=== PATIENT | male | born 1995 | race Caucasian/White ===

== ENCOUNTER 2024-03-08 09:04 | Emergency (ER) | payer OTHER ==
[2024-03-08] MEDS: Lidocaine 1% 5 ML VIAL INJECT ONE (09:54)
[2024-03-08] MEDS: Bupivacaine 0.5% 10 ML SDV INJECT ONE (09:54)
[2024-03-08] MEDS: Diphtheria,Pertussis(Acell),Tetanus Vaccine 0.5 ML Syringe IM ONE (10:48)
== END 2024-03-08 11:30 ==
LOC: LL.ED 09:04
DX: S62.633A Displaced fracture of distal phalanx of left middle finger, initial encounter for closed fracture (principal); S67.193A Crushing injury of left middle finger, initial encounter; F17.210 Nicotine dependence, cigarettes, uncomplicated; Z79.899 Other long term (current) drug therapy; W23.1XXA Caught, crushed, jammed, or pinched between stationary objects, initial encounter; Y99.0 Civilian activity done for income or pay; Z23 Encounter for immunization
CPT/HCPCS: 12001; 73140; 90471; 90715; 99283; J0665; J3490